=== PATIENT | male | born 1990 | race Two or more races ===

== ENCOUNTER 2016-04-30 03:55 | Emergency (ER) | payer OTHER ==
[~2016-04-30] VITALS: Ht 175.3 cm; Wt 65.8 kg
[2016-04-30] MEDS ORDERED: ACETAMINOPHEN ES 500 MG TABLET ONE (05:43)
[2016-04-30] MEDS ORDERED: ACETAMINOPHEN 325 MG TABLET PO ONE (06:00)
[2016-04-30 06:02] VITALS: BP 138/87
== END 2016-04-30 05:54 | disposition home or self-care (01) ==
LOC: ER 03:58 → EDBD 03:58 → ER 05:54
DX: S00.83XA Contusion of other part of head, initial encounter (principal); F10.129 Alcohol abuse with intoxication, unspecified; J45.909 Unspecified asthma, uncomplicated; R79.89 Other specified abnormal findings of blood chemistry; Y08.89XA Assault by other specified means, initial encounter; Y93.89 Activity, other specified; Y92.89 Other specified places as the place of occurrence of the external cause; Y99.9 Unspecified external cause status
CPT/HCPCS: 70450; 70486; 72125; 82962; 99284; A4606; Z7610

== ENCOUNTER 2021-06-04 09:40 | Emergency (ER) | payer OTHER ==
[~2021-06-04] VITALS: Ht 175.3 cm; Wt 68.0 kg
--- NOTE | 2021-06-04 09:58 | NUR ---
TO ER BED 13, BIB [facility] C/O L ANKLE/FOOT PAIN S/P GLF YESTERDAY, AAOX3, BREATHING EVEN AND NON LABORED, CONNECTED TO MONITOR, [facility] UNIT#[id number], AWAITING MD [place]
[2021-06-04] MEDS ORDERED: IBUPROFEN 600 MG TABLET ONE (10:20)
[2021-06-04] MEDS ORDERED: IBUPROFEN 600 MG TABLET PO ONE (10:30)
--- NOTE | 2021-06-04 10:45 | NUR ---
DRAWER IN AT BEDSIDE
--- NOTE | 2021-06-04 12:32 | NUR ---
[id number] stable [facility]. Written and verbal after care instructions given. Patient verbalizes understanding of instruction.
--- NOTE | 2021-06-04 12:32 | NUR ---
MEDICALLY CLEARED. D/C TO [facility]. CONDITION STABLE.
[2021-06-04 12:33] VITALS: BP 124/76
== END 2021-06-04 12:33 | disposition home or self-care (01) ==
LOC: ER 09:55
DX: S93.492A Sprain of other ligament of left ankle, initial encounter (principal); J45.909 Unspecified asthma, uncomplicated; Z98.890 Other specified postprocedural states; Z60.2 Problems related to living alone; X50.1XXA Overexertion from prolonged static or awkward postures, initial encounter; Y93.89 Activity, other specified; Y92.89 Other specified places as the place of occurrence of the external cause; Y99.8 Other external cause status
CPT/HCPCS: 73610-TC; 73630-TC